=== PATIENT | male | born 2000 | race Hispanic/Latino ===

== ENCOUNTER 2024-09-03 09:39 | Emergency (ER) | payer SELFPAY ==
[~2024-09-03] VITALS: Ht 180.3 cm; Wt 142.4 kg
[2024-09-03 09:45] VITALS: PULSE 88; RESP 20; TEMP 99.1
[2024-09-03] MEDS ORDERED: DEXAMETHASONE SOD PHOS INJ 4 MG/ML SDV ONE (10:14)
[2024-09-03] MEDS: KETOROLAC TROMETHAMINE 60 MG/2 ML VIAL IM ONE (10:39)
[2024-09-03 10:40] VITALS: BP 129/60; PULSE 61; RESP 17; TEMP 98.3; O2SAT 98
[2024-09-03] MEDS: DEXAMETHASONE SOD PHOS 10 MG/1 ML VIAL IM ONE (10:40)
== END 2024-09-03 10:20 | disposition home or self-care (01) ==
LOC: FSED 09:52
DX: S29.012A Strain of muscle and tendon of back wall of thorax, initial encounter (principal); X58.XXXA Exposure to other specified factors, initial encounter; Y92.89 Other specified places as the place of occurrence of the external cause
CPT/HCPCS: 93005; 99283; J1100 ×2; J1885